=== PATIENT | male | born 1945 | race Caucasian/White ===

== ENCOUNTER → 2017-03-22 | Outpatient (CLI) | payer MEDICARE | LOC: GMAM 18:17 | PROVIDERS: ATTEND Family Medicine | DX: R53.83 Other fatigue (principal); E78.1 Pure hyperglyceridemia ==

== ENCOUNTER → 2017-04-05 | Outpatient (CLI) | payer MEDICARE | LOC: GMAM 14:45 | PROVIDERS: ATTEND Family Medicine | DX: Z51.89 Encounter for other specified aftercare (principal); Z12.5 Encounter for screening for malignant neoplasm of prostate | CPT/HCPCS: 86705; 86709; 86803; 87340; G0103 ==